=== PATIENT | female | born 1960 | race Caucasian/White ===

== ENCOUNTER 2016-11-25 14:14 | Emergency (ER) | payer OTHER, MEDICAID ==
[~2016-11-25] VITALS: Ht 160 cm; Wt 84.8 kg
[2016-11-25 14:21] VITALS: BP 129/69
--- NOTE | 2016-11-25 15:11 | NUR ---
PT TAKEN TO OVERFLOW CHAIR
--- NOTE | 2016-11-25 15:30 | NUR ---
Patient being evaluated by TRACY Barry in overflow.
[2016-11-25] MEDS ORDERED: FLUORESCEIN OPTH STRIP 1 MG ONE (15:56)
[2016-11-25] MEDS ORDERED: TETRACAINE 0.5% OPTH SOL 2 ML BTL ONE (15:56)
[2016-11-25 16:26] VITALS: BP 129/69
--- NOTE | 2016-11-25 16:26 | NUR ---
Patient discharged with v/s stable. Written and verbal after care instructions given and explained. Patient alert, oriented and verbalized understanding of instructions. Ambulatory with steady gait. All questions addressed prior to discharge. ID band removed. Patient advised to follow up with PMD. Rx of EYE DROPS given. Patient educated on indication of medication including possible reaction and side effects. Opportunity to ask questions provided and answered.
== END 2016-11-25 16:26 | disposition home or self-care (01) ==
LOC: MED 14:14
DX: H10.9 Unspecified conjunctivitis (principal)
CPT/HCPCS: 99283